=== PATIENT | male | born 1940 | race Caucasian/White ===

== ENCOUNTER 2016-08-26 11:31 | Emergency (ER) | payer MEDICARE, BC ==
[2016-08-26 11:47] VITALS: BP 109/53
--- OUTSIDE RECORDS SUMMARY | 2016-08-26 12:00 | XMS REPORT | Continuity of Care Document ---
:1940 Author Organization [facility] ([facility]) Address [address] [place] [address] Phone [phone] Care Team Providers Name Role Phone Barron Francis Primary Care Provider [phone] Source Comments This disclosure is being made pursuant to the Care Everywhere program, applicable federal and state laws, and may not contain all informaitonavailable regarding this patient.[facility] ([facility]) Active Allergies and Adverse Reactions Allergen Noted Date Severity Reactions Comments Codeine Stomach Pain Current Medications Prescription Sig. Disp. Refills Start End Status Date Date multivitamin per Take 1 tablet by Active tablet mouth daily ciprofloxacin 750 Take 750 mg by Active mg tablet mouth every week On Tuesday morning. riFAXimin (XIFAXAN) Take 1 Tab by mouth 60 Tab 10/14/19 Active 550 mg tablet 2 times daily. 13 Indications: HEPATIC ENCEPHALOPATHY lactulose 10 g/15 Take 15 mL by mouth 1000 mL 10/14/19 Active mL solution 2 times daily. 13 Indications: HEPATIC ENCEPHALOPATHY cyanocobalamin Inject 1,000 mcg Active (VITAMIN B-12) 1000 intramuscularly mcg/mL injection every month finasteride 5 mg Take 5 mg by mouth Active tablet every evening . levothyroxine Take 75 mcg by 03/20/20 Active (SYNTHROID) 75 mcg mouth every morning 13 tablet before breakfast . lovaSTATIN 40 mg take 2 tablet 04/20/20 Active tablet (80MG) by oral 11 route every day with the evening meal mupirocin 2 % Apply 1 application Active ointment topically 2 times daily as needed folic acid 1 mg Take 1 tablet (1 mg 30 tablet 0 04/19/20 Active tablet total) by mouth 15 daily melatonin 3 mg Take 1 tablet (3 mg 30 tablet 0 04/19/20 Active tablet total) by mouth at 15 bedtime midodrine 5 mg Take 1 tablet (5 mg 90 tablet 11 05/01/20 Active tablet total) by mouth 2 15 times daily cholecalciferol Take 2,000 Units by Active (VITAMIN D3) 2,000 mouth daily. unit tablet traZODone 50 mg 50mg in the morning Active tablet and 100mg at bedtime SERTraline 100 mg Take 50 mg by mouth Active tablet daily. 1/2 tablet mornign aspirin 81 mg EC Take 81 mg by mouth Active tablet daily. furosemide 40 mg Take 40 mg by mouth Active tablet daily. tamsulosin 0.4 mg Take 0.4 mg by Active capsule mouth daily. thiamine 100 mg Take 100 mg by Active tablet mouth daily. zinc sulfate 220 mg Take 440 mg by Active capsule mouth 3 times daily. sodium bicarbonate Take 650 mg by Active 650 mg tablet mouth 3 times daily. vitamin E 400 unit Take 800 Units by Active capsule mouth daily. OLANZapine 2.5 mg Take 2 tablets (5 10 tablet 0 08/26/19 Active tablet mg total) by mouth 17 at bedtime. oxybutynin Take 5 mg by mouth Discontinued (DITROPAN) 5 mg 3 times daily 017 tablet thiamine (VITAMIN Take 2 tablets (100 30 tablet 0 04/19/20 Discontinued B-1) 50 mg tablet mg total) by mouth 15 017 daily zinc sulfate 220 mg Take 1 capsule (220 60 capsule 06/20/19 Discontinued capsule mg total) by mouth 16 017 2 times daily. OLANZapine 2.5 mg Take 5 mg by mouth Discontinued tablet at bedtime. 017 LORazepam 0.5 mg Take 0.5 mg by Discontinued tablet mouth every 4 hours 017 as needed. calcium acetate 667 Take 1 capsule (667 90 capsule 03/21/20 Discontinued mg capsule mg total) by mouth 16 017 3 times daily with meals. OLANZapine 10 mg Take 5 mg by mouth Discontinued tablet at bedtime. 017 gabapentin 300 mg Take 300 mg by Discontinued capsule mouth 3 times 017 daily. Active Problems Problem Noted Date Intestinal obstruction 08/17/2015 Hyperkalemia 08/17/2015 Metabolic acidosis, increased anion gap 08/17/2015 Hyponatremia 08/17/2015 Edema 04/20/2015 Cognitive disorder 04/19/2015 ILDA (acute kidney injury) 04/19/2015 Vitamin D deficiency 04/14/2015 Marijuana dependence 04/11/2015 Opiate dependence 04/11/2015 History of depression 04/11/2015 PTSD (post-traumatic stress disorder) 04/11/2015 Anxiety disorder 04/11/2015 Encephalopathy, metabolic 03/31/2015 CKD (chronic kidney disease) stage 4, GFR 15-29 ml/min 03/12/2015 Solitary kidney, congenital 03/12/2015 Anemia in chronic 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.21) 03/12/2015 Ascites 05/05/2012 Cirrhosis 05/04/2012 Pain in joint, ankle and foot 05/18/2007 Bunion 05/18/2007 Resolved Problems Problem Noted Date Resolved Date Altered mental status 03/29/2015 04/19/2015 Most Recent Encounters Date Type Specialty Providers Description 08/26/2016 Telephone Med GI/Hepatology Cecy Mchugh Chief Comp: Lab Results 08/26/2016 Orders/Notes Med GI/Hepatology Casimiro Whipple PA-C 08/25/2016 Office Visit Med GI/Hepatology Griffin Parada Dx: Gomez Harrison MD (Primary Dx) William Blackwell MD Brown, Kyle E, MD Richardson, Michael T, JAYDEC 08/25/2016 Pharmacy Visit 08/18/2016 Office Visit Med GI/Hepatology Griffin Parada Dx: Cirrhosis of MD Hunter liver with ascites, William Blackwell, unspecified hepatic MD cirrhosis type Jasiel Velasquez MD (Primary Dx) Casimiro Whipple, JAYDEC 08/18/2016 Office Visit Med GI/Hepatology Default, Other Subj: Upcoming Appt Billg - Defo Reminder Jasiel Velasquez MD 08/18/2016 Telephone Med GI/Hepatology Awilda Bridges, Chief Comp: Medical Richelle Galeano RN Update 08/16/2016 Telephone Med GI/Hepatology Unique Rolon Chief Comp: Patient L Concern 08/11/2016 Office Visit Med GI/Hepatology Default, Other Subj: Upcoming Appt Billg - Defo Reminder Donato Crane MD 08/11/2016 Office Visit Med GI/Hepatology [facility] Parada Dx: Gomez Harrison MD (Primary Dx) William Blackwell MD Richardson, Michael T, PA-C 08/11/2016 Orders/Notes Med GI/Hepatology Ruben Monae Dx: Cirrhosis MD [place] (Primary Dx) 08/05/2016 Office Visit Pathology Aparna Villanueva MD Dx: Chronic kidney Lab Services, Pfp disease, stage IV (severe) 08/05/2016 Office Visit Renal and Default, Other Dx: CKD (chronic Hypertension Billg - Defo kidney disease), Aparna Villanueva MD stage 4 (severe) Yolis Rolle (Primary Dx) MD Jeferson 08/04/2016 Office Visit Med GI/Hepatology Default, Other Subj: Upcoming Appt Billg - Defo Reminder Casimiro Muse MD 08/04/2016 Office Visit Med GI/Hepatology Griffin Parada Dx: Other cirrhosis MD Hunter of liver (Primary Casimiro Muse, Dx) Casimiro Villanueva, JAYDEC 07/30/2016 Hospital Encounter Radiology [facility] [place], Dx: Cirrhosis Adriana Camarena MD 07/30/2016 Office Visit Med GI/Hepatology Ruben Monae Dx: Cirrhosis MD [place] (Primary Dx) 07/28/2016 Office Visit Med GI/Hepatology Griffin Parada Dx: Ascites MD Hunter (Primary Dx) Casimiro Whipple, JAYDEC 07/23/2016 Telephone Med GI/Hepatology Ruben Monae Dx: Renal failure, MD [place] chronic, stage 4 (severe) (Primary Dx) 07/21/2016 Office Visit Med GI/Hepatology Default, Other Dx: Ascites Billg - Defo (Primary Dx) Jasiel Velasquez MD Richardson, Michael T, JAYDEC 07/14/2016 Office Visit Med GI/Hepatology Default, Other Dx: Ascites Billg - Defo (Primary Dx) Derrell Aguilera MD Richardson, Michael T, JAYDEC 07/07/2016 Office Visit Med GI/Hepatology Derrell Aguilera Dx: ELVIN Cunningham MD (nonalcoholic Sarabjit, steatohepatitis) JAYDE RamírezC (Primary Dx) 06/30/2016 Office Visit Med GI/Hepatology Derrell Aguilera Dx: Gomez Cunningham MD (Primary Dx) Casimiro Whipple, PA-C 06/23/2016 Office Visit Med GI/Hepatology Default, Other Dx: Ascites Billg - Defo (Primary Dx) Byron Patino MD Richardson, Michael T, PA-C 06/23/2016 Orders/Notes Med GI/Hepatology Ruben Monae Dx: Gomez Galeano MD (Primary Dx) 06/16/2016 Office Visit Med GI/Hepatology Default, Other Dx: Ascites Billg - Defo (Primary Dx) Byron Patino MD Richardson, Michael T, PA-C 06/09/2016 Office Visit Med GI/Hepatology Default, Other Dx: OCONNOR Billg - Defo (nonalcoholic SequeiraDavey MD steatohepatitis) Sarabjit, (Primary Dx) Casimiro Hoskins PA-C 06/02/2016 Office Visit Med GI/Hepatology Default, Other Dx: Ascites Billg - Defo (Primary Dx) Dayday Sung MD Richardson, Michael T, PA-C 06/02/2016 Orders/Notes Med GI/Hepatology Ruben Monae Dx: ELVIN Galeano MD (nonalcoholic steatohepatitis) (Primary Dx) Immunizations Name Dates Previously Given Next Due Influenza 03/05/2015 Influenza, PF 03/22/2014 Tdap 01/25/2016,11/13/2013 Social History Tobacco Use Types Packs/Day Years Used Date Never Smoker 0.05 0 Smokeless Tobacco: Current User Chew Tobacco Cessation:Counseling Given: Yes Comments: Alcohol Use Drinks/Week oz/Week Comments No Last Filed Vital Signs Vital Sign Reading Time Taken Blood Pressure 113/68 08/25/2016 12:35 PM CDT Pulse 79 08/25/2016 12:35 PM CDT Temperature 36.3 C (97.3 F) 08/25/2016 12:35 PM CDT Respiratory Rate 20 05/26/2016 12:32 PM EPIC CUPID ANALYST Height 1.803 m (5' 10.98") 08/25/2016 12:35 PM CDT Weight 80 kg (176 lb 5.9 oz) 08/25/2016 12:35 PM CDT Body Mass Index 24.61 08/25/2016 12:35 PM CDT Oxygen Saturation 98% 03/03/2016 10:26 AM CDT Plan of Care Date Type Specialty Providers Description 01/28/2017 Appointment Radiology Subj: Appointment Scheduled 01/28/2017 Appointment Med GI/Hepatology Ruben Monae, Subj: Appointment Scheduled [address] [place] [address] [phone] (Fax) 01/28/2017 Appointment Renal and Hypertension Default, Other Billg - Defo [address] [place] [address] [phone] (Fax) Subj: Appointment Yolis Rolle MD [address] [place] [address] [phone] (Fax) Scheduled Health Maintenance Due Date Last Done Comments Hepatitis B Vaccine (1 of 3 - Primary 1940 Series) Colonoscopy 1990 Prostate Cancer Screening 1990 Zoster Vaccine 2000 Pneumococcal Vaccine (1 of 2 - PCV13) 2005 Influenza Vaccine: Seasonal (#1) 12/29/2015 03/05/2015, 03/22/2014 Lipid Disorder Screening 08/02/2018 08/02/2013 Td Vaccine 01/24/2026 01/25/2016, 11/13/2013 AAA Screening Completed 08/17/2015, 04/21/2015 Tdap Vaccine Completed 01/25/2016, 11/13/2013 Procedures from Last 3 Months Procedure Name Priority Date/Time Associated Diagnosis Comments ABSTRACTED BY Routine 08/25/2016 1:54 OCONNOR (nonalcoholic Results for this BILLING STAFF PM CDT steatohepatitis) procedure are in Ascites the results Cirrhosis section. ABSTRACTED BY Routine 08/18/2016 6:08 Cirrhosis of liver Results for this BILLING STAFF PM CDT with ascites, procedure are in unspecified hepatic the results cirrhosis type section. ABSTRACTED BY Routine 08/11/2016 1:28 OCONNOR (nonalcoholic Results for this BILLING STAFF PM CDT steatohepatitis) procedure are in Ascites the results section. ABSTRACTED BY Routine 08/04/2016 1:47 Other cirrhosis of Results for this BILLING STAFF PM EPIC CUPID ANALYST liver procedure are in OCONNOR (nonalcoholic the results steatohepatitis) section. Ascites ABSTRACTED BY Routine 07/28/2016 2:13 Ascites Results for this BILLING STAFF PM EPIC CUPID ANALYST OCONNOR (nonalcoholic procedure are in steatohepatitis) the results section. ABSTRACTED BY Routine 07/21/2016 2:46 OCONNOR (nonalcoholic Results for this BILLING STAFF PM EPIC CUPID ANALYST steatohepatitis) procedure are in Ascites the results section. ABSTRACTED BY Routine 07/14/2016 2:04 OCONNOR (nonalcoholic Results for this BILLING STAFF PM EPIC CUPID ANALYST steatohepatitis) procedure are in Ascites the results section. ABSTRACTED BY Routine 07/07/2016 1:20 OCONNOR (nonalcoholic Results for this BILLING STAFF PM EPIC CUPID ANALYST steatohepatitis) procedure are in Ascites the results section. ABSTRACTED BY Routine 06/30/2016 2:49 OCONNOR (nonalcoholic Results for this BILLING STAFF PM EPIC CUPID ANALYST steatohepatitis) procedure are in Ascites the results Portal hypertension section. CKD (chronic kidney disease) stage 4, GFR 15-29 ml/min Other ascites ABSTRACTED BY Routine 06/23/2016 1:50 OCONNOR (nonalcoholic Results for this BILLING STAFF PM EPIC CUPID ANALYST steatohepatitis) procedure are in Ascites the results Portal hypertension section. CKD (chronic kidney disease) stage 4, GFR 15-29 ml/min Other ascites ABSTRACTED BY Routine 06/16/2016 1:44 OCONNOR (nonalcoholic Results for this BILLING STAFF PM EPIC CUPID ANALYST steatohepatitis) procedure are in Ascites the results Portal hypertension section. ABSTRACTED BY Routine 06/09/2016 2:01 OCONNOR (nonalcoholic Results for this BILLING STAFF PM EPIC CUPID ANALYST steatohepatitis) procedure are in Ascites the results Portal hypertension section. ABSTRACTED BY Routine 06/02/2016 2:31 OCONNOR (nonalcoholic Results for this BILLING STAFF PM EPIC CUPID ANALYST steatohepatitis) procedure are in Ascites the results Portal hypertension section. Decompensated hepatic cirrhosis Results from Last 3 Months DRUGS OF ABUSE - URINE (08/25/2016 3:22 PM) Component Value Range Amphetamines, Urine NegativeComment: Negative Test cut-off: 1000 ng/mL for d-methamphetamine. Benzodiazepine, Urine NegativeComment: Negative Test cut-off:100 ng/mL Cocaine, Urine NegativeComment: Negative Test cut-off:300 ng/mL Opiate, Urine NegativeComment: Negative Test cut-off:300 ng/mL for morphine Oxycodone, Urine NegativeComment: Negative Test cut-off:300 ng/mL Amphetamines assay cross-reacts well with amphetamine and methamphetamine, as well as the "lead level designer" amphetamines MDMA ("Ecstasy"), MDA, MDEA ("Brooke"), MBDB , PMA, and PMMA. Labetalol may also produce f alse positives due to cross-reactivity of a metabolite. The amphetamines assay has little or no cross-reactivity with ephedrine, pseudoephedrine, phentermine, and methylphenidate. Opiates assay has lo w cross-reactivity for buprenorphine, fentanyl, meperidine, methadone, oxycodone, and propoxyphene (all have cut-offs greater than 75,000 ng/mL). Please see Laboratory Services Handbook ([email or web address]_ handbook.index.html) for more detailed information on assay cross-reactivity. Drug of abuse screening tests are to be used for medical purposes only and not for non-medical purposes (e.g., employee, sourcing coordinator, or forensic testing). Specimen Urine THC-URINE SCREEN (08/25/2016 3:22 PM) Component Value Range THC, Urine Presumptive Positive(A)Comment: Negative Test-cut off:50 ng/mL Drug of abuse screening tests are to be used for medical purposes only and not for non-medical purposes (e.g., employee or forensic testing). Specimen Urine BODY FLUID CELL COUNT AND DIFF (08/25/2016 2:00 PM)Only the most recent of13 resultswithin the time period is included. Component Value Range Body Fluid Type Peritoneal fluid Clarity, Other Slightly Hazy(A) Clear Color, Other Yellow None, Yellow, Pale Yellow Total Nucleated Count, Other 139 /MM3 RBC Count, Other 3000 /MM3 Neutrophils, Other 3 /MM3 Lymphocytes, Other 42 /MM3 Mononucleated Cells, Other 95 /MM3 % Neutrophils, Other 2.0 % % Lymphocytes, Other 30.0 % %BF Mononucleated Cells 68.0 % Specimen Other ALBUMIN-OTHER (08/25/2016 2:00 PM)Only the most recent of13 resultswithin the time period is included. Component Value Range Albumin Fluid Type Peritoneal fluid Albumin, Other 0.7Comment: g/dL This test is not approved by the FDA for this sample type. Performance characteristics and reference range have not been verified. Results should be interpreted in conjunction with clinical findings. Specimen Other TOTAL PROTEIN-OTHER (08/25/2016 2:00 PM)Only the most recent of13 resultswithin the time period is included. Component Value Range Total Protein Fluid Type Peritoneal fluid Total Protein, Other 1.5Comment: g/dL This test is not approved by the FDA for this sample type. Performance characteristics and reference range have not been verified. Results should be interpreted in conjunction with clinical findings. A published study using [employer] viola 8000 analyzers has demonstrated that analysis of total protein in cerebrospinal fluid, pericardial fluid, peritoneal/ascites fluid, pleural fluid, an d synovial fluid shows no evidence of systematic matrix interference (Clin Biochem 48:911-914, 2015). Specimen Other AMMONIA, PLASMA (08/25/2016 1:55 PM)Only the most recent of3 resultswithin the time period is included. Component Value Range Plasma Ammonia 46 11-51 mol/L Specimen Blood PARACENTESIS (08/25/2016 1:54 PM) Casimiro Elmore PA-C 08/25/20161:54 PM PARACENTESIS Supervision type: Indirect Paracentesis, Diagnostic or Therapeutic Procedure Note 08/25/2016 Indication for Procedure: Ascites secondary to OCONNOR cirrhosis Consent: obtained from patient. Time Out: yes Ultrasound: was not used Description of Procedure: The patient was positioned supine, prepped with betadine and draped sterilely.After ensuring adequate anesthesia a Delarosa needle was inserted into the abdomen in in the left lower quadrant and orange colored fluid was obtained.Total fluid removed was 6.5 liters.The device was withdrawn and a sterile dressing applied. 50 grams of IV Albumin was given. Fluid samples were sent for analyses Procedural Medications:1% lidocaine, 3 cc Complications: None noted Casimiro Whipple, MS, MPASBALDO Physician Bulk Plant Agent, Division Gastroenterology & Hepatology [facility] Department of Internal Medicine Pager: [phone] BASIC METABOLIC PANEL W/ CALCIUM (CHEM 8) (08/25/2016 12:43 PM)Only the most recent of13 resultswithin the time period is included. Component Value Range Sodium 135 135-145 mEq/L Potassium 4.3 3.5-5.0 mEq/L Chloride 97 95-107 mEq/L CO2 23 22-29 mEq/L BUN 70(H) 10-20 mg/dL Creatinine 2.9(H)Comment: 0.6-1.2 mg/dL Creatinine switched to enzymatic method on 10/06/2010.GFR equation switched to IDMS-traceable MDRD equation on 10/06/2010. Calculated GFR values are not valid in clinical settings where serum creatinine is changing. Glucose 182(H)Comment: 65-99 mg/dL The Expert Committee on the Diagnosis and Classification of Diabetes has defined impaired fasting glucose as greater than or equal to 100 mg/dL but less than 126 mg/dL.(Diabetes Care 28 (Suppl 1)S41,2005) Calcium 8.1(L) 8.5-10.5 mg/dL Anion Gap 15 mEq/L Calculated GFR 21(L) >60 mL/min/1.73 m2 Specimen Blood PT/INR (PROTHROMBIN TIME/INR) VENOUS (08/25/2016 12:43 PM)Only the most recent of11 resultswithin the time period is included. Component Value Range PT (Prothrombin Time) 12 9-12 secs INR 1.1 <4.0 Specimen Blood CBC (COMPLETE BLOOD COUNT) (08/25/2016 12:43 PM)Only the most recent of12 resultswithin the time period is included. Component Value Range WBC Count 5.4 3.7-10.5 K/MM3 RBC Count 3.02(L) 4.50-6.20 M/MM3 Hemoglobin 8.8(L) 13.2-17.7 g/dL Hematocrit 27(L) 40-52 % MCV (Mean Corpuscular Volume) 88 82-99 FL MCH (Mean Corpuscular Hemoglobin) 29 25-35 PG MCHC (Mean Corpuscular Hemoglobin Concentration) 33 32-36 % Platelet Count 86(L) 150-400 K/MM3 MPV (Mean Platelet Volume) 11.8 9.4-12.3 FL RBC Dist Width-STD 46.0(H) 35.1-43.9 FL RBC Distrib Width 14.3 9.0-14.5 % Nucleated RBC 0 /100 WBC Specimen Whole Blood PARACENTESIS (08/18/2016 6:08 PM) Casimiro Elmore PA-C 08/18/20166:08 PM PARACENTESIS Supervision type: Indirect Paracentesis, Diagnostic or Therapeutic Procedure Note 08/18/2016 Indication for the Procedure: Ascites secondary to OCONNOR cirrhosis Consent: obtained from patient. Time Out: yes Ultrasound: was not used Description of Procedure: The patient was positioned supine, prepped with betadine and draped sterilely.After ensuring adequate anesthesia a Delarosa needle was inserted into the abdomen in in the left lower quadrant and blood-tinged fluid was obtained.Total fluid removed was 7 liters.The device was withdrawn and a sterile dressing applied. 50 grams of IV Albumin was given. Fluid samples were sent for analyses Procedural Medications:1% lidocaine, 3 cc Complications: None noted Casimiro Whipple MS, BALDO THAYER Physician Bulk Plant Agent, Division Gastroenterology & Hepatology [facility] Department of Internal Medicine Pager: [phone] STERILE BODY FLUIDS CULTURE-AUTOMATED (08/18/2016 1:48 PM)Only the most recent of12 resultswithin the time period is included. Component Value Range Blood Culture No Growth Specimen Culture - Peritoneal Fluid PARACENTESIS OF ABDOMEN (08/11/2016 1:28 PM) Casimiro Elmore PA-C 08/11/20161:28 PM Paracentesis of abdomen Supervision type: Indirect Paracentesis, Diagnostic or Therapeutic Procedure Note 08/11/2016 Indication for Procedure: Ascites secondary to OCONNOR cirrhosis Consent: obtained from patient. Time Out: yes Ultrasound: was not used Description of Procedure: The patient was positioned supine, prepped with betadine and draped sterilely.After ensuring adequate anesthesia a Delarosa needle was inserted into the abdomen in in the left lower quadrant and straw-colored, slightly hazy fluid was obtained.Total fluid removed was 7.5 liters. The device was withdrawn and a sterile dressing applied. 50 grams of IV Albumin was given. Fluid samples were sent for analyses Procedural Medications:1% lidocaine, 3 cc Complications: None noted Casimiro Whipple MS, BALDO THAYER Physician Bulk Plant Agent, Division Gastroenterology & Hepatology [facility] Department of Internal Medicine Pager: [phone] VITAMIN D, 25-HYDROXY (08/05/2016 1:34 PM) Component Value Range Vitamin D, 25-OH 8(L)Comment: 20-80 ng/mL This assay accurately quantifies the sum of 25-hydroxyvitamin D3 and 25- hydroxyvitamin D2. Endocrine Society, [place] of Medicine (IOM), and World Health Organization (WHO) guidelines designate 25-h ydroxyvitamin D plasma concentrations below 20 ng/mL as deficient, based on increased frequency of adverse outcomes (e.g., osteoporotic fractures). 25-Hydroxyvitamin D reference ranges are a controversial topic, with some authorities suggesting optimal concentrations should be 30 ng/mL or higher based on correlations of 25-hydroxyvitamin D plasma concentrations with physiological parameters such as parathyroid hormone or calcium concentrations. However, optimal 25-hydroxyvitamin D concentrations greater than 20 ng/mL may be considered for specific disease conditions. Vitamin D toxicity is uncommon but may be seen at 25-hydroxyvitamin D concentrations greater than 150 ng/mL. Specimen Blood FERRITIN (08/05/2016 1:34 PM) Component Value Range Ferritin 68.6 30.0-400.0 ng/mL Specimen Blood IRON PANEL (IRON, TRANSFERRIN AND % SATURATION) (08/05/2016 1:34 PM) Component Value Range Iron, Blood 41(L) 59-158 g/dL Transferrin 192(L) 200-360 mg/dL Iron % Saturation 15(L)Comment: 20-50 % Iron % saturation is a calculated parameter derived from the iron and transferrin plasma concentrations. Iron % saturation is not reliable when there are high ferritin concentrations greater than 1,200 ng/mL. TIBC (Total Iron Binding Capacity) 275Comment: 250-425 g/dL TIBC is a calculated parameter derived from the transferrin plasma concentration. Specimen Blood HEMATOCRIT (08/05/2016 1:34 PM) Component Value Range Hematocrit 30(L) 40-52 % Specimen Blood HEMOGLOBIN (08/05/2016 1:34 PM) Component Value Range Hemoglobin 9.8(L) 13.2-17.7 g/dL Specimen Blood PARATHYROID HORMONE (08/05/2016 1:34 PM)Only the most recent of2 resultswithin the time period is included. Component Value Range PTH 143.4(H) 10.0-65.0 pg/mL Specimen Blood PHOSPHORUS (08/05/2016 1:34 PM) Component Value Range Phosphorus 4.0Comment:New reference range installed 03/11/15. 2.5-4.5 mg/dL Specimen Blood CALCIUM (08/05/2016 1:34 PM) Component Value Range Calcium 8.2(L) 8.5-10.5 mg/dL Specimen Blood ALBUMIN (08/05/2016 1:34 PM) Component Value Range Albumin 3.8 3.4-4.8 g/dL Specimen Blood CHEM 6 PANEL (08/05/2016 1:34 PM) Component Value Range Sodium 135 135-145 mEq/L Chloride 97 95-107 mEq/L Potassium 4.8 3.5-5.0 mEq/L CO2 24 22-29 mEq/L BUN 61(H) 10-20 mg/dL Creatinine 3.2(H)Comment: 0.6-1.2 mg/dL Creatinine switched to enzymatic method on 10/06/2010.GFR equation switched to IDMS-traceable MDRD equation on 10/06/2010. Calculated GFR values are not valid in clinical settings where serum creatinine is changing. Anion Gap 14 8-18 mEq/L Calculated GFR 19(L) >60 mL/min/1.73 m2 Specimen Blood PARACENTESIS (08/04/2016 1:47 PM) Casimiro Elmore PA-C 08/04/20161:47 PM PARACENTESIS Supervision type: Indirect Paracentesis, Diagnostic or Therapeutic Procedure Note 08/04/2016 Indication for Procedure: Ascites secondary to OCONNOR cirrhosis Consent: obtained from patient. Time Out: yes Ultrasound: was not used Description of Procedure: The patient was positioned supine, prepped with betadine and draped sterilely.After ensuring adequate anesthesia a Delarosa needle was inserted into the abdomen in in the left lower quadrant and hazy fluid was obtained.Total fluid removed was 8.1.The device was withdrawn and a sterile dressing applied. 50 grams of IV Albumin was given. Fluid samples were sent for analyses Procedural Medications:1% lidocaine, 3 cc Complications: None noted Casimiro Whipple, MS, MPASBALDO Physician Bulk Plant Agent, Division Gastroenterology & Hepatology [facility] Department of Internal Medicine Pager: [phone] RIGHT UPPER QUADRANT (RUQ) (07/30/2016 3:13 PM) Impressions Impression: 1. Cirrhotic liver without suspicious focal liver lesions. 2. There are changes of portal hypertension including splenomegaly and ascites. 3. Incidental liver granulomas & a cyst. --- Final --- Narrative [facility] Department of Radiology Ultrasound Division [address] [place] [address] ULTRASOUND REPORT NAME:JR. ADINA HADDAD Date of Service: 07/30/2016 MRN NO.: [id number] Date: 2016 Patient's : 1940 Resident/Tech: KARRIE Patient's Age: 75 yearsReferring MD:RUBEN MONAE Indication: Evaluate liver morphology, assess for lesion Cirrhosis [K74.60] Ascites [R18.8] OCONNOR (nonalcoholic steatohepatitis) [K75.81] Other cirrhosis of liver [K74.69] Portal vein thrombosis [I81] CKD (chronic kidney disease) stage 4, GFR 15-29 ml/min [N18.4] Cancer screening [Z12.9]. Technique: Liver, spleen, ascites surveillance grayscale ultrasound. Findings: Liver: Scattered calcifications throughout. +---------+ + +--------+ + :Size (cm):Echogenicity:Echotexture:Shape :Vascularity: +---------+ + +--------+ + :15.4 :Normal. :Coarse echotexture.:Nodular.:Normal.: +---------+ + +--------+ + +------+ + + + :Lesion:Location :Size (cm):Echogenicity: +------+ + + + :1 :Left upper.:.7 x .7 x .6 cm:Cyst. : +------+ + + + Biliary Tree: + + + :Extrahepatic duct (common duct):Diameter (mm): + + + :Mid:2.7 : + + + Spleen: Splenomegaly. Spleen measures 15.3 x 14.7 x 6.7 cm. Ascites: There is moderate ascites. Moderate ascites in the abdomen and pelvis. Procedure Note Spike, Incoming Imaging Results - TueJul 30, 2016 3:19 PM EPIC CUPID ANALYST [facility] Department of Radiology Ultrasound Division [address] [place] [address] ULTRASOUND REPORT NAME: JR. ADINA HADDAD Date of Service: 07/30/2016 MRN NO.: [id number] Review Date: 07/30/2016 Patient's : 1940 Resident/Tech: KARRIE Patient's Age: 75 years Referring MD: RUBEN MONAE Indication: Evaluate liver morphology, assess for lesion Cirrhosis [K74.60] Ascites [R18.8] OCONNOR (nonalcoholic steatohepatitis) [K75.81] Other cirrhosis of liver [K74.69] Portal vein thrombosis [I81] CKD (chronic kidney disease) stage 4, GFR 15-29 ml/min [N18.4] Cancer screening [Z12.9]. Technique: Liver, spleen, ascites surveillance grayscale ultrasound. Findings: Liver: Scattered calcifications throughout. +---------+ + +--------+ + :Size (cm):Echogenicity:Echotexture :Shape :Vascularity: +---------+ + +--------+ + :15.4 :Normal. :Coarse echotexture.:Nodular.:Normal. : +---------+ + +--------+ + +------+ + + + :Lesion:Location :Size (cm) :Echogenicity: +------+ + + + : 1 :Left upper.:.7 x .7 x .6 cm:Cyst. : +------+ + + + Biliary Tree: + + + :Extrahepatic duct (common duct):Diameter (mm): + + + :Mid :2.7 : + + + Spleen: Splenomegaly. Spleen measures 15.3 x 14.7 x 6.7 cm. Ascites: There is moderate ascites. Moderate ascites in the abdomen and pelvis. IMPRESSION Impression: 1. Cirrhotic liver without suspicious focal liver lesions. 2. There are changes of portal hypertension including splenomegaly and ascites. 3. Incidental liver granulomas & a cyst. --- Final --- PARACENTESIS (07/28/2016 2:13 PM) Casimiro Elmore PA-C 07/28/20162:13 PM PARACENTESIS Supervision type: Indirect Paracentesis, Diagnostic or Therapeutic Procedure Note 07/28/2016 Indication for Procedure: Ascites secondary to OCONNOR cirrhosis Consent: obtained from patient. Time Out: yes Ultrasound: was not used Description of Procedure: The patient was positioned supine, prepped with betadine and draped sterilely.After ensuring adequate anesthesia a Delarosa needle was inserted into the abdomen in in the left lower quadrant and straw-colored, moderately hazy fluid was obtained.Total fluid removed was 7.9 liters.The device was withdrawn and a sterile dressing applied. 50 grams of IV Albumin was given. Fluid samples were sent for analyses Procedural Medications:1% lidocaine, 5 cc Complications: None noted Casimiro Whipple, MS, MPASBALDO Physician Bulk Plant Agent, Division Gastroenterology & Hepatology [facility] Department of Internal Medicine Pager: [phone] GAMMA GLUTAMYLTRANSPEPTIDASE (07/28/2016 12:58 PM)Only the most recent of2 resultswithin the time period is included. Component Value Range GGT 44 8-61 U/L Specimen Blood LACTATE DEHYDROGENASE (LDH) (07/28/2016 12:58 PM)Only the most recent of2 resultswithin the time period is included. Component Value Range LDH 206 135-225 U/L Specimen Blood ALPHA-FETOPROTEIN (07/28/2016 12:58 PM)Only the most recent of2 resultswithin the time period is included. Component Value Range AFP 1.7 0.0-9.0 ng/mL Specimen Blood HEPATIC FUNCTION PANEL (07/28/2016 12:58 PM)Only the most recent of2 resultswithin the time period is included. Component Value Range Albumin 3.3(L) 3.4-4.8 g/dL ALP 76 40-129 U/L Bilirubin Total 0.4 <=1.2 mg/dL Bilirubin, Direct <0.2 0.0-0.2 mg/dL AST 23Comment: 0-40 U/L Adult reference ranges updated on 04/24/13 at 830am ALT 14Comment: 0-41 U/L The upper limit of normal for alanine aminotransferase (ALT) reference ranges for adults is controversial with some authorities recommending limit as low as 30 U/L for males and 19 U/L for females. Th ere is increased incidence of subclinical liver disease (e.g., early steatohepatitis) in patients with ALT values in the range of 31-41 U/L for males and 20-33 U/L for females. ALT values should alway s be interpreted in conjunction with clinical history, physical examination findings, and, if applicable, data from other diagnostic tests. Total Protein 6.1 6.0-8.0 g/dL Specimen Blood PARACENTESIS OF ABDOMEN (07/21/2016 2:46 PM) Casimiro Elmore PA-C 07/21/20162:46 PM Paracentesis of abdomen Supervision type: Indirect Paracentesis, Diagnostic or Therapeutic Procedure Note 07/21/2016 Consent: obtained from patient. Time Out: yes Ultrasound: was not used Description of Procedure: The patient was positioned supine, prepped with betadine and draped sterilely.After ensuring adequate anesthesia a Delarosa needle was inserted into the abdomen in in the left lower quadrant and hazy, straw-colored fluid was obtained.Total fluid removed was 8.5 liters.The device was withdrawn and a sterile dressing applied. 75 grams of IV Albumin was given. Fluid samples were sent for analyses Procedural Medications:1% lidocaine, 4 cc Complications: None noted Casimiro Whipple, MS, MPAS, BALDO Physician Bulk Plant Agent, Division Gastroenterology & Hepatology [facility] Department of Internal Medicine Pager: [phone] DIFFERENTIAL (07/21/2016 12:54 PM) Component Value Range % Neutrophils-Auto Diff 78.1 % Neutrophils-Auto Diff 3670 2193-0190 /MM3 % Lymphocytes-Auto Diff 4.5 % Lymphocytes-Auto Diff 210(L) 875-3300 /MM3 % Monocytes-Auto Diff 10.6 % Monocytes-Auto Diff 500 130-860 /MM3 % Eosinophils-Auto Diff 6.0 % Eosinophils-Auto Diff 280 40-390 /MM3 % Basophils 0.4 % Basophils-Auto Diff 20 10-136 /MM3 % Immature Granulocytes-Auto Diff 0.4 % Immature Granulocytes-Auto Diff 20 /MM3 Specimen Whole Blood CBC (COMPLETE BLOOD COUNT) (07/21/2016 12:54 PM) Component Value Range WBC Count 4.7 3.7-10.5 K/MM3 RBC Count 3.15(L) 4.50-6.20 M/MM3 Hemoglobin 9.6(L) 13.2-17.7 g/dL Hematocrit 28(L) 40-52 % MCV (Mean Corpuscular Volume) 90 82-99 FL MCH (Mean Corpuscular Hemoglobin) 31 25-35 PG MCHC (Mean Corpuscular Hemoglobin Concentration) 34 32-36 % Platelet Count 82(L) 150-400 K/MM3 MPV (Mean Platelet Volume) 10.9 9.4-12.3 FL RBC Dist Width-STD 51.0(H) 35.1-43.9 FL RBC Distrib Width 15.5(H) 9.0-14.5 % Nucleated RBC 0 /100 WBC Specimen Whole Blood CBC WITH DIFFERENTIAL (07/21/2016 12:54 PM) Specimen Whole Blood Narrative The following orders were created for panel order CBC WITH DIFFERENTIAL. Procedure Abnormality Status --------- ------ CBC (COMPLETE BLOOD COUNT)[[id number]] AbnormalFinal result DIFFERENTIAL[[id number]] AbnormalFinal result Please view results for these tests on the individual orders. PARACENTESIS (07/14/2016 2:04 PM) Narrative Casimiro Whipple PA-C 07/14/20162:04 PM PARACENTESIS Supervision type: Indirect Paracentesis, Diagnostic or Therapeutic Procedure Note 07/14/2016 Consent: obtained from patient. Time Out: yes Ultrasound: was not used Description of Procedure: The patient was positioned supine, prepped with betadine and draped sterilely.After ensuring adequate anesthesia a Delarosa needle was inserted into the abdomen in in the left lower quadrant and straw-colored fluid was obtained.Total fluid removed was 7.5 liters.The device was withdrawn and a sterile dressing applied. 50 grams of IV Albumin was given. Fluid samples were sent for analyses Procedural Medications:1% lidocaine, 4 cc Complications: None noted Casimiro Whipple MS, MPAS, PA-C Physician Bulk Plant Agent, Division Gastroenterology & Hepatology [facility] Department of Internal Medicine Pager: [phone] PARACENTESIS OF ABDOMEN (07/07/2016 1:20 PM) Casimiro Elmore PA-C 07/07/20161:20 PM Paracentesis of abdomen Supervision type: Indirect Paracentesis, Diagnostic or Therapeutic Procedure Note 07/07/2016 Indication for Procedure: Ascites secondary to OCONNOR cirrhosis Consent: obtained from patient. Time Out: yes Ultrasound: was not used Description of Procedure: The patient was positioned supine, prepped with betadine and draped sterilely.After ensuring adequate anesthesia a Delarosa needle was inserted into the abdomen in in the left lower quadrant and straw-colored, slightly hazy fluid was obtained.Total fluid removed was 8.5 liters. The device was withdrawn and a sterile dressing applied. 50 grams of IV Albumin was given. Fluid samples were sent for analyses Procedural Medications:1% lidocaine, 3 cc Complications: None noted Casimiro Whipple MS, MPAS, PA-C Physician Bulk Plant Agent, Division Gastroenterology & Hepatology [facility] Department of Internal Medicine Pager: [phone] PARACENTESIS (06/30/2016 2:49 PM) Casimiro Elmore PA-C 06/30/20162:49 PM PARACENTESIS Supervision type: Indirect Paracentesis, Diagnostic or Therapeutic Procedure Note 06/30/2016 Indication for Procedure: Ascites secondary to OCONNOR cirrhosis Consent: obtained from patient. Time Out: yes Ultrasound: was not used Description of Procedure: The patient was positioned supine, prepped with betadine and draped sterilely.After ensuring adequate anesthesia a Delarosa needle was inserted into the abdomen in in the left lower quadrant and straw-colored fluid was obtained.Total fluid removed was 7.2 liters.The device was withdrawn and a sterile dressing applied. 50 grams of IV Albumin was given. Fluid samples were sent for analyses Procedural Medications:1% lidocaine, 3 cc Complications: None noted Casimiro Whipple MS, MPAS, PA-C Physician Bulk Plant Agent, Division Gastroenterology & Hepatology [facility] Department of Internal Medicine Pager: [phone] PARACENTESIS (06/23/2016 1:50 PM) Casimiro Elmore PA-C 06/23/20161:50 PM PARACENTESIS Supervision type: Indirect Paracentesis, Diagnostic or Therapeutic Procedure Note 06/23/2016 Indication for Procedure: Ascites secondary to OCONNOR cirrhosis Consent: obtained from patient. Time Out: yes Ultrasound: was not used Description of Procedure: The patient was positioned supine, prepped with betadine and draped sterilely.After ensuring adequate anesthesia a Delarosa needle was inserted into the abdomen in in the left lower quadrant and straw-colored fluid was obtained.Total fluid removed was 7.9 liters.The device was withdrawn and a sterile dressing applied. 75 grams of IV Albumin was given. Fluid samples were sent for analyses Procedural Medications:1% lidocaine, 3 cc Complications: None noted Casimiro Whipple MS, MPAS, PA-C Physician Bulk Plant Agent, Division Gastroenterology & Hepatology [facility] Department of Internal Medicine Pager: [phone] PARACENTESIS (06/16/2016 1:44 PM) Casimiro Elmore PA-C 06/16/20161:44 PM PARACENTESIS Supervision type: Indirect Paracentesis, Diagnostic or Therapeutic Procedure Note 06/16/2016 Indication for Procedure: Ascites secondary to OCONNOR cirrhosis Consent: obtained from patient. Time Out: yes Ultrasound: was not used Description of Procedure: The patient was positioned supine, prepped with betadine and draped sterilely.After ensuring adequate anesthesia a Delarosa needle was inserted into the abdomen in in the left lower quadrant and straw-colored fluid was obtained.Total fluid removed was 8.7 liters.The device was withdrawn and a sterile dressing applied. 75 grams of IV Albumin was given. Fluid samples were sent for analyses Procedural Medications:1% lidocaine, 3 cc Complications: None noted Casimiro Whipple MS, MPAS, PA-C Physician Bulk Plant Agent, Division Gastroenterology & Hepatology [facility] Department of Internal Medicine Pager: [phone] PARACENTESIS (06/09/2016 2:01 PM) Casimiro Elmore PA-C 06/09/20162:01 PM PARACENTESIS Supervision type: Indirect Paracentesis, Diagnostic or Therapeutic Procedure Note 06/09/2016 Indication for Procedure: Ascites secondary to OCONNOR Cirrhosis Consent: obtained from patient. Time Out: yes Ultrasound: was not used Description of Procedure: The patient was positioned supine, prepped with betadine and draped sterilely.After ensuring adequate anesthesia a Delarosa needle was inserted into the abdomen in in the left lower quadrant and straw-colored, slightly hazy fluid was obtained.Total fluid removed was 6.7 liters. The device was withdrawn and a sterile dressing applied. 50 grams of IV Albumin was given. Fluid samples were sent for analyses Procedural Medications:1% lidocaine, 3.5 cc Complications: None noted Casimiro Whipple MS, BALDO THAYER Physician Bulk Plant Agent, Division Gastroenterology & Hepatology [facility] Department of Internal Medicine Pager: [phone] TRIGLYCERIDES-OTHER (06/09/2016 1:51 PM) Component Value Range Triglycerides Fluid Type Peritoneal fluid Triglycerides, Other 45Comment: mg/dL This test is not approved by the FDA for this sample type. Performance characteristics and reference range have not been verified. Results should be interpreted in conjunction with clinical findings. A published study using [employer] viola 8000 analyzers has demonstrated that analysis of triglycerides in drain fluids, pericardial fluid, peritoneal/ascites fluid, and pleural fluid shows no evidence of systematic matrix interference (Clin Biochem 48:911-914, 2015) . Specimen Other PARACENTESIS (06/02/2016 2:31 PM) Casimiro Elmore PA-C 06/02/20162:31 PM PARACENTESIS Supervision type: Indirect Paracentesis, Diagnostic or Therapeutic Procedure Note 06/02/2016 Indication for Procedure: Ascites secondary to OCONNOR cirrhosis Consent: obtained from patient. Time Out: yes Ultrasound: was not used Description of Procedure: The patient was positioned supine, prepped with betadine and draped sterilely.After ensuring adequate anesthesia a Delarosa needle was inserted into the abdomen in in the left lower quadrant and straw-colored fluid was obtained.Total fluid removed was 6.7 liters.The device was withdrawn and a sterile dressing applied. 50 grams of IV Albumin was given. Fluid samples were sent for analyses Procedural Medications:1% lidocaine, 4 cc Complications: None noted Casimiro Whipple MS, MPAS, PA-C Physician Bulk Plant Agent, Division Gastroenterology & Hepatology [facility] Department of Internal Medicine Pager: [phone]
== END 2016-08-26 12:00 | disposition left against medical advice (07) ==
LOC: ER 11:31
DX: Z53.21 Procedure and treatment not carried out due to patient leaving prior to being seen by health care provider (principal)

== ENCOUNTER 2016-09-17 11:14 | Emergency (ER) | payer MEDICARE, BC ==
--- OUTSIDE RECORDS SUMMARY | 2016-09-17 11:49 | XMS REPORT | Continuity of Care Document ---
:1940 Author Organization [employer] [place] [address] Care Team Providers Name Role Phone Provider, None Per Patient Primary Care Provider Unavailable Source Comments This disclosure is being made pursuant to the [employer] program and maynot contain all information available regarding this patient.[employer] Active Allergies and Adverse Reactions No Known Allergies Current Medications Be aware that medications may not be up to date as of this document. Alwaysverify current medications with the patient. No known medications Active Problems Not on file Most Recent Encounters Date Type Specialty Providers Description 09/15/2016 Hospital Encounter Emergency Medicine Milan Ruiz, Other ascites MD (Primary Dx); Chronic renal insufficiency, stage 4 (severe) (HCC) 09/15/2016 Hospital Encounter Emergency Medicine Social History Tobacco Use Types Packs/Day Years Used Date Never Assessed Last Filed Vital Signs Vital Sign Reading Time Taken Blood Pressure 111/71 09/15/2016 8:25 PM CDT Pulse 76 09/15/2016 8:25 PM CDT Temperature 36.5 C (97.7 F) 09/15/2016 8:25 PM CDT Respiratory Rate 20 09/15/2016 8:25 PM CDT Height - - Weight 78.6 kg (173 lb 4.5 oz) 09/15/2016 8:25 PM CDT Body Mass Index - - Oxygen Saturation 95% 09/15/2016 8:25 PM CDT Plan of Care Health Maintenance Due Date Last Done Comments Tetanus/Pertussis (1 - Tdap) 12/25/1959 Colonoscopy 1990 Well Adult Visit 1990 Zoster Vaccine 60+ 2000 Pneumococcal Low/Medium Risk 65+ (1 of 2 - PCV13) 2005 Influenza Immunization (#1) 2016 Results from Last 3 Months Urinalysis with Reflex Testing (09/15/2016 9:51 PM) Component Value Range Specimen,UR CLN CATCH Color STRAW STRAW Clarity CLEAR CLEAR Glucose, Urinalysis NEG NEG mg/dL Bilirubin Urine NEG NEG Ketones, UA NEG NEG mg/dL Specific [place]berg 1.022 1.005-1.030 Blood NEG NEG pH 5.0 5.0-8.0 Protein NEG NEG mg/dL Urobilinogen 0.2 0.2-1.0 EU/dL Nitrite NEG NEG Leukocyte Esterase, UA NEG NEG Comment NONEComment:Test Performed at [facility], [address], [place], [place]. Specimen Cln Catch PROTIME-INR (09/15/2016 9:32 PM) Component Value Range Protime 11.6 9.3-11.7 sec INR 1.1Comment: 0.9-1.1 If patient is on warfarin, then suggested therapeutic range is: VENOUS THROMBOSIS=2.0-3.0 PULMONARY EMBOLISM=2.0-3.0 ATRIAL FIBRILLATION=2.0-3.0 MECHANICAL HEART VALVE,AORTIC=2.0-3.0 MECHANICAL HEART VALVE,MITRAL=2.5-3.5 BIOPROSTHETIC VALVE, MITRAL FOR 3 MONTHS POST OP=2.0-3.0 RECURRENT SYSTEMIC EMBOLISM=2.5-3.5 For more information, see [facility] Warfarin Prescribing Information. Test Performed at [facility], [address] [facility], [place], [place]. Comprehensive metabolic panel (09/15/2016 9:32 PM) Component Value Range Sodium 139 136-145 mmol/L Potassium 3.6 3.5-5.0 mmol/L Chloride 99 95-110 mmol/L CO2 31 21-32 mmol/L Glucose 173(H) 70-99 mg/dL BUN, Blood 72(H) 7-23 mg/dL Creatinine, Serum 3.62(H)Comment:The analysis was performed 0.51-1.17 mg/dL using an isotope dilution mass spectrometry (IDMS) traceable methodology. Calcium 8.9 8.5-10.1 mg/dL Total Protein 5.8(L) 6.4-8.2 g/dL Albumin 3.1(L) 3.4-5.0 g/dL Bilirubin Total 0.4 0.2-1.0 mg/dL Alkaline Phosphatase 78 45-117 U/L AST 21 7-40 U/L ALT 23 0-65 U/L Anion Gap 9 2-18 mmol/L BUN/Creatinine Ratio 19.9 10.0-24.0 Osmolality Calculated 303(H) 275-295 mosm/Kg Globulin 2.7 2.5-3.8 g/dL A/G Ratio 1.1 1.1-2.3 EGFR Non-/Australian 17(L)Comment: >60 GFR REFERENCE RANGE: >60 mL/min/1.73m2 -- Stage 4:GFR 15-29Severe decreased GFR. EGFR /Australian 20(L)Comment: >60 -- Stage 4:GFR 15-29Severe decreased GFR. Test Performed at [facility], [address], [place], [place]. CBC and differential (09/15/2016 9:32 PM) Component Value Range WBC 3.9(L) 4.5-11.0 th/mm3 RBC 2.91(L) 4.54-5.77 mill/mm3 Hemoglobin 8.6(L) 14.0-17.7 g/dL Hematocrit 26.1(L) 40.0-52.0 % MCV 89.7 82.0-99.0 fL MCH 29.6 27.0-32.0 pg MCHC 33.0 32.0-36.0 g/dL Platelets 74(L) 150-400 th/mm3 RDW 46.5 39.6-47.4 fL NRBC Absolute 0.00 0.00 th/mm3 Neutrophil % 73.5(H) 35.0-65.0 % Neutrophils Absolute Count 2.87 1.30-6.00 th/mm3 Lymphocytes % 6.4(L) 23.0-45.0 % Lymphocytes Absolute 0.25(L) 1.50-3.50 th/mm3 Monocyte % 14.9(H) 0.0-10.0 % Monos Absolute 0.58 <1.0 th/mm3 Eosinophils Relative % 4.4(H) 1.0-3.0 % Eosinophils Absolute Count 0.17 <0.7 th/mm3 Basophils % 0.5 0.0-1.0 % Basophils Absolute 0.02 <0.1 th/mm3 Immature Neutro % 0.3 0.0-1.0 % Immature Neutro 0.01Comment:Test Performed at [facility], [address], [place].
--- OUTSIDE RECORDS SUMMARY | 2016-09-17 11:50 | XMS REPORT | Continuity of Care Document ---
:1940 Author Organization [facility] ([facility]) Address [address] [place] [address] Phone [phone] Care Team Providers Name Role Phone Barron Francis Primary Care Provider [phone] Source Comments This disclosure is being made pursuant to the Care Everywhere program, applicable federal and state laws, and may not contain all informaitonavailable regarding this patient.[facility] ([facility]) Active Allergies and Adverse Reactions Allergen Noted Date Severity Reactions Comments Codeine Stomach Pain Current Medications Prescription Sig. Disp. Refills Start End Status Date Date multivitamin per Take 1 tablet by Active tablet mouth daily ciprofloxacin 750 Take 750 mg by Active mg tablet mouth every week On Tuesday morning. riFAXimin Take 1 Tab by 60 Tab 10/14/19 Active (XIFAXAN) 550 mg mouth 2 times 13 tablet daily. Indications: HEPATIC ENCEPHALOPATHY lactulose 10 g/15 Take 15 mL by 1000 mL 10/14/19 Active mL solution mouth 2 times 13 daily. Indications: HEPATIC ENCEPHALOPATHY cyanocobalamin Inject 1,000 mcg Active (VITAMIN B-12) intramuscularly 1000 mcg/mL every month. Last injection dose given 08/19 finasteride 5 mg Take 5 mg by mouth Active tablet every evening . levothyroxine Take 75 mcg by 03/20/20 Active (SYNTHROID) 75 mcg mouth every 13 tablet morning before breakfast . lovaSTATIN 40 mg take 2 tablet 04/20/20 Active tablet (80MG) by oral 11 route every day with the evening meal folic acid 1 mg Take 1 tablet (1 30 tablet 0 04/19/20 Active tablet mg total) by mouth 15 daily melatonin 3 mg Take 1 tablet (3 30 tablet 0 04/19/20 Active tablet mg total) by mouth 15 at bedtime midodrine 5 mg Take 1 tablet (5 90 tablet 11 05/01/20 Active tablet mg total) by mouth 15 2 times daily cholecalciferol Take 2,000 Units Active (VITAMIN D3) 2,000 by mouth daily. unit tablet traZODone 50 mg 50mg in the Active tablet morning and 100mg at bedtime SERTraline 100 mg Take 50 mg by Active tablet mouth daily. 1/2 tablet morning aspirin 81 mg EC Take 81 mg by Active tablet mouth daily. tamsulosin 0.4 mg Take 0.4 mg by Active capsule mouth daily. thiamine 100 mg Take 100 mg by Active tablet mouth daily. zinc sulfate 220 Take 440 mg by Active mg capsule mouth 3 times daily. sodium bicarbonate Take 650 mg by Active 650 mg tablet mouth 3 times daily. vitamin E 400 unit Take 800 Units by Active capsule mouth daily. bacitracin 500 Apply topically as Active unit/g ointment needed. miconazole 2 % Apply topically Active powder daily as needed. furosemide 40 mg Take 40 mg by Active tablet mouth daily. ondansetron 4 mg Take 1 tablet (4 10 tablet 0 09/06/19 Active tablet mg total) by mouth 17 every 6 hours as needed for Nausea/Vomiting. bisacodyl 10 mg Insert 1 5 Suppository 0 09/06/19 Active suppository Suppository (10 mg 17 total) rectally daily as needed for Constipation. mupirocin 2 % Apply 1 Discontinued ointment application 2016 topically 2 times daily as needed OLANZapine 2.5 mg Take 5 mg by mouth 08/25/ Discontinued tablet at bedtime. 2016 furosemide 40 mg Take 40 mg by 09/02/ Discontinued tablet mouth daily. 2016 OLANZapine 10 mg Take 5 mg by mouth 08/25/ Discontinued tablet at bedtime. 2016 gabapentin 300 mg Take 300 mg by 08/25/ Discontinued capsule mouth 3 times 2016 daily. OLANZapine 2.5 mg Take 2 tablets (5 10 tablet 0 08/26/1909/05/ Discontinued tablet mg total) by mouth 17 2016 at bedtime. 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 Intestinal obstruction 08/17/2015 Hyperkalemia 08/17/2015 Metabolic acidosis, [...] Resolved Problems Problem Noted Date Resolved Date Encephalopathy 09/05/2016 09/05/2016 Bizarre behavior 09/01/2016 09/05/2016 Altered mental status 03/29/2015 04/19/2015 Most Recent Encounters Date Type Specialty Providers Description 09/17/2016 Hospital Patient Services Jeff Osborne Encounter 09/16/2016 [facility] Emergency Medicine Casimiro Beach Dx: Other ascites Encounter MD Hunter (Primary Dx) 09/16/2016 Orders/Notes Psychiatry Nancie Rosado MD 09/16/2016 Telephone Med GI/Hepatology Awilda Bridges, Chief Comp: Review Richelle Galeano RN Of Concerns 09/15/2016 Office Visit Med GI/Hepatology Ruben Monae Subj: Upcoming Lorena Galeano MD Reminder Casimiro Whipple PA-C 09/08/2016 Office Visit Med GI/Hepatology Ruben Monae Subj: Upcoming Lorena Galeano MD Reminder Casimiro Whipple PA-C 09/07/2016 Telephone Med GI/Hepatology Emily Lowry RN Chief Comp: Patient Concern 09/06/2016 Telephone Med GI/Hepatology Mary Jo Goldstein Chief Comp: Medical Update 09/02/2016 Telephone Med GI/Hepatology Emily Lowry RN Chief Comp: Patient Concern 09/01/2016 - [facility] Behavioral Health Nancie Rosado Dx: Bizarre 09/07/2016 Encounter Inpatient - MD hector Interiano (Primary Jeff Osborne, Dx) 09/01/2016 Office Visit Psychiatry Oliver Garvin MD Dx: Other specified Doretha Clark, anxiety disorders (Primary Dx) 09/01/2016 Office Visit Med GI/Hepatology Ruben Monae Dx: Ascites J, MD (Primary Dx) Griffin Parada MD Richardson, Michael T, PA-C 09/01/2016 Telephone Med GI/Hepatology Radha Quintero, Chief Comp: Other RN 08/30/2016 Telephone Med GI/Hepatology Mary Jo Goldstein Chief Comp: Follow-up 08/26/2016 Telephone Med GI/Hepatology Talia Bonilla, Chief Comp: Patient RN Concern 08/26/2016 Orders/Notes Med GI/Hepatology Ruben Monae Dx: Ascites MD Waleska (Primary Dx) 08/26/2016 Telephone Med GI/Hepatology Cecy Mchugh Chief Comp: Lab Results 08/26/2016 Orders/Notes Med GI/Hepatology Casimiro Whipple, PA-C 08/25/2016 Office Visit Med GI/Hepatology Griffin Parada Dx: Gomez Harrison MD (Primary Dx) William Blackwell MD Brown, Kyle E, MD Richardson, Michael T, PA-C 08/25/2016 Pharmacy Visit 08/18/2016 Office Visit Med GI/Hepatology Griffin Parada Dx: Cirrhosis of MD Hunter liver with ascites, William Blackwell, unspecified hepatic MD cirrhosis type Jasiel Velasquez MD (Primary Dx) Casimiro Whipple, PA-C 08/18/2016 Office Visit Med GI/Hepatology Default, Other [...] of liver (Primary Casimiro Muse, Dx) Casimiro Villanueva PA-C 07/30/2016 [facility] Radiology [facility], Dx: Cirrhosis Encounter Adriana Camarena MD 07/30/2016 Office Visit Med GI/Hepatology Ruben Monae Dx: Cirrhosis MD Waleska (Primary Dx) 07/28/2016 Office Visit Med GI/Hepatology Griffin Parada Dx: Ascites MD Hunter (Primary Dx) Casimiro Whipple PA-C 07/23/2016 Telephone Med GI/Hepatology Ruben Monae Dx: Renal failure, MD Waleska chronic, stage 4 (severe) (Primary Dx) 07/21/2016 Office Visit Med GI/Hepatology Default, Other Dx: Ascites Billg - Defo (Primary Dx) Jasiel Velasquez MD Richardson, Michael T, PA-C 07/14/2016 Office Visit Med GI/Hepatology Default, Other Dx: Ascites Billg - Defo (Primary Dx) Derrell Aguilera MD Richardson, Michael T, PA-C 07/07/2016 Office Visit Med GI/Hepatology Derrell Aguilera Dx: ELVIN Cunningham MD (nonalcoholic Whipple, steatohepatitis) Casimiro Hoskins PA-C (Primary Dx) 06/30/2016 Office Visit Med GI/Hepatology Derrell Aguilera Dx: Gomez Cunningham MD (Primary Dx) Casimiro Whipple PA-C 06/23/2016 Office Visit Med GI/Hepatology Default, Other Dx: Ascites Billg - Defo (Primary Dx) Byron Patino MD Richardson, Michael T, PA-C 06/23/2016 Orders/Notes Med GI/Hepatology Ruben Monae Dx: Gomez Galeano MD (Primary Dx) Immunizations Name Dates Previously Given Next Due Influenza 03/05/2015 Influenza, PF 03/22/2014 Tdap 01/25/2016,11/13/2013 Social History Tobacco Use Types Packs/Day Years Used Date Never Smoker 0.05 0 Smokeless Tobacco: Former User Chew Tobacco Cessation:Counseling Given: Yes Comments: Alcohol Use Drinks/Week oz/Week Comments No Last Filed Vital Signs Vital Sign Reading Time Taken Blood Pressure 96/64 09/15/2016 11:55 PM CDT Pulse 97 09/15/2016 11:55 PM CDT Temperature 37.3 C (99.1 F) 09/15/2016 11:55 PM CDT Respiratory Rate 20 09/15/2016 11:55 PM CDT Height 1.702 m (5' 7") 09/01/2016 5:09 PM CDT Weight 77.6 kg (171 lb 1.2 oz) 09/04/2016 4:12 PM CDT Body Mass Index 26.79 09/04/2016 4:12 PM CDT Oxygen Saturation 96% 09/15/2016 11:55 PM CDT Plan of Care Date Type Specialty Providers Description 09/22/2016 Appointment Med GI/Hepatology Ruben Monae MD [address] [place] [phone] (Fax) Subj: Upcoming Appt Casimiro Whipple PA-C [address] [place] [address] [phone] (Fax) Reminder 01/28/2017 Appointment Radiology Subj: Appointment Scheduled 01/28/2017 Appointment Med GI/Hepatology Ruben Monae, Subj: Appointment Scheduled [address] [place] [address] [phone] (Fax) 01/28/2017 Appointment Renal and Hypertension Default, Other Billg - Defo [address] [place] [address] [phone] (Fax) Subj: Appointment Yolis Rolle MD [address] [place] [phone] (Fax) Scheduled Health Maintenance Due Date Last Done Comments Hepatitis B Vaccine (1 of 3 - Primary 1940 Series) Colonoscopy 1990 Prostate Cancer Screening 1990 Zoster Vaccine 2000 Pneumococcal Vaccine (1 of 2 - PCV13) 2005 Influenza Vaccine: Seasonal (Season Ended) 2016 03/05/2015, 03/22/2014 Lipid Disorder Screening 08/02/2018 08/02/2013 Td Vaccine 01/24/2026 01/25/2016, 11/13/2013 AAA Screening Completed 08/17/2015, 04/21/2015 Tdap Vaccine Completed 01/25/2016, 11/13/2013 Procedures from Last 3 Months Procedure Name Priority Date/Time Associated Diagnosis Comments ABSTRACTED BY Routine 09/01/2016 9:12 Ascites Results for this BILLING STAFF PM CDT Cirrhosis procedure are in the results section. ABSTRACTED BY Routine 08/25/2016 1:54 OCONNOR (nonalcoholic [...] of Results for this BILLING STAFF PM JUNIOR [employer] liver procedure are in OCONNOR (nonalcoholic the results steatohepatitis) section. Ascites ABSTRACTED BY Routine 07/28/2016 2:13 Ascites Results for this BILLING STAFF PM JUNIOR [employer]ALEGAL OCONNOR (nonalcoholic procedure are in steatohepatitis) the results section. ABSTRACTED BY Routine 07/21/2016 2:46 OCONNOR (nonalcoholic Results for this BILLING STAFF PM JUNIOR PARALEGAL steatohepatitis) procedure are in Ascites the results section. ABSTRACTED BY Routine 07/14/2016 2:04 OCONNOR (nonalcoholic Results for this BILLING STAFF PM JUNIOR [employer]ALEGAL steatohepatitis) procedure are in Ascites the results section. ABSTRACTED BY Routine 07/07/2016 1:20 OCONNOR (nonalcoholic Results for this BILLING STAFF PM JUNIOR [employer]ALEGAL steatohepatitis) procedure are in Ascites the results section. ABSTRACTED BY Routine 06/30/2016 2:49 OCONNOR (nonalcoholic Results for this BILLING STAFF PM JUNIOR [employer]ALE[employer] steatohepatitis) procedure are in Ascites the results Portal hypertension section. CKD (chronic kidney disease) stage 4, GFR 15-29 ml/min Other ascites ABSTRACTED BY Routine 06/23/2016 1:50 OCONNOR (nonalcoholic Results for this BILLING STAFF PM JUNIOR [employer]ALEGAL steatohepatitis) procedure are in Ascites the results Portal hypertension section. CKD (chronic kidney disease) stage 4, GFR 15-29 ml/min Other ascites Results from Last 3 Months ALBUMIN-OTHER (09/16/2016 2:01 AM)Only the most recent of12 resultswithin the time period is included. Component Value Range Albumin Fluid Type Peritoneal fluid Albumin, Other 0.8Comment: g/dL This test is not approved by the FDA for this sample type. Performance characteristics and reference range have not been verified. Results should be interpreted in conjunction with clinical findings. Specimen Other BODY FLUID CELL COUNT AND DIFF (09/16/2016 2:01 AM)Only the most recent of12 resultswithin the time period is included. Component Value Range Body Fluid Type Peritoneal fluid Clarity, Other Slightly Hazy(A) Clear Color, Other Yellow None, Yellow, Pale Yellow Total Nucleated Count, Other 91 /MM3 RBC Count, Other 2000 /MM3 Neutrophils, Other 2 /MM3 Lymphocytes, Other 31 /MM3 Mononucleated Cells, Other 57 /MM3 Eosinophils, Other 1 /MM3 % Neutrophils, Other 2.0 % % Lymphocytes, Other 34.0 % %BF Mononucleated Cells 63.0 % % Eosinophils, Other 1.0 % Specimen Other DIFFERENTIAL (09/16/2016 1:10 AM)Only the most recent of2 resultswithin the time period is included. Component Value Range % Neutrophils-Auto Diff 74.8 % Neutrophils-Auto Diff 3860 2920-6364 /MM3 % Lymphocytes-Auto Diff 5.6 % Lymphocytes-Auto Diff 290(L) 875-3300 /MM3 % Monocytes-Auto Diff 14.7 % Monocytes-Auto Diff 760 130-860 /MM3 % Eosinophils-Auto Diff 4.1 % Eosinophils-Auto Diff 210 40-390 /MM3 % Basophils 0.4 % Basophils-Auto Diff 20 10-136 /MM3 % Immature Granulocytes-Auto Diff 0.4 % Immature Granulocytes-Auto Diff 20 /MM3 Specimen Whole Blood CBC (COMPLETE BLOOD COUNT) (09/16/2016 1:10 AM)Only the most recent of2 resultswithin the time period is included. Component Value Range WBC Count 5.2 3.7-10.5 K/MM3 RBC Count 3.16(L) 4.50-6.20 M/MM3 Hemoglobin 9.2(L) 13.2-17.7 g/dL Hematocrit 29(L) 40-52 % MCV (Mean Corpuscular Volume) 90 82-99 FL MCH (Mean Corpuscular Hemoglobin) 29 25-35 PG MCHC (Mean Corpuscular Hemoglobin Concentration) 32 32-36 % Platelet Count 92(L) 150-400 K/MM3 MPV (Mean Platelet Volume) 11.6 9.4-12.3 FL RBC Dist Width-STD 47.3(H) 35.1-43.9 FL RBC Distrib Width 14.3 9.0-14.5 % Nucleated RBC 0 /100 WBC Specimen Whole Blood ETHANOL VOLATILE PANEL (09/16/2016 1:10 AM) Component Value Range Sodium 138 135-145 mEq/L Glucose 123(H)Comment:The Expert Committee on the 65-99 mg/dL Diagnosis and Classification of Diabetes has defined impaired fasting glucose as greater than or equal to 100 mg/dL but less than 126 mg/dL. (Diabetes Care 28 (Suppl 1) S41,2005) BUN 69(H) 10-20 mg/dL Calculated Osmolality 309(H) 50-300 mOsm/kg Osmolality Gap 3 <15 mOsm/kg Unexplained Osmolality Gap 3Comment: <15 mOsm/kg The osmol gap is the measured plasma osmolality minus the calculated osmolality estimated using sodium, BUN, and glucose. The 'unexplained gap' provides a further correction for the presence of ethano l (if present) in the patient?s plasma. An elevated unexplained osmol gap > 15 can occur due to the presence of ethylene glycol, methanol, isopropanol, propylene glycol (found in activated charcoal and some intravenous medications), acetone, or mannitol. All samples that have an unexplained gap >15 are additionally tested for ethylene glycol by immunoassay.Elevated unexplained gaps can al so be seen in patients withdrawing from heavy ethanol use who have ketoacidosis and/or significant amounts of ethanol metabolites in the plasma. Ethanol 0Comment: mg/dL Reference range: None detected. Ethanol intoxication typically begins in the 50-100 mg/dL range. Critical value: >300 mg/dL. Ethanol values less than 10 mg/dL cannot be distinguished from zero. Osmolality, Plasma 312(H) 280-300 mOsm/kg Specimen Blood VENOUS BLOOD GAS (CRITICAL CARE LABORATORY) (09/16/2016 1:10 AM) Component Value Range pH, Venous 7.46(H) 7.33-7.43 pCO2, Venous 43 37-50 torr pO2, Venous 44 37-47 torr Base Excess, Venous 7(H) -2-2 mEq/L Bicarbonate, Venous 30(H) 22-26 mEq/L Total CO2, Venous 32 24-32 mEq/L Temperature, Venous 37.0 Degrees C Specimen Whole Blood PT/INR (PROTHROMBIN TIME/INR) VENOUS (09/16/2016 1:10 AM)Only the most recent of10 resultswithin the time period is included. Component Value Range PT (Prothrombin Time) 12 9-12 secs INR 1.2 <4.0 Specimen Blood AMMONIA, PLASMA (09/16/2016 1:10 AM)Only the most recent of4 resultswithin the time period is included. Component Value Range Plasma Ammonia 50 11-51 mol/L Specimen Blood LACTIC ACID, WHOLE BLOOD (CRITICAL CARE LABORATORY) (09/16/2016 1:10 AM) Component Value Range Lactic Acid, Whole Blood 0.7Comment: 0.5-2.0 mEq/L Glycolate, the principle toxic metabolite of ethylene glycol, can cause artifactual elevation of measured lactate. Specimen Whole Blood COMPREHENSIVE METABOLIC PANEL (CMP) (09/16/2016 1:10 AM) Component Value Range Sodium 138 135-145 mEq/L Potassium 3.9 3.5-5.0 mEq/L Chloride 97 95-107 mEq/L CO2 28 22-29 mEq/L BUN 69(H) 10-20 mg/dL Creatinine 3.6(H)Comment: 0.6-1.2 mg/dL Creatinine switched to enzymatic method on 10/06/2010.GFR equation switched to IDMS-traceable MDRD equation on 10/06/2010. Calculated GFR values are not valid in clinical settings where serum creatinine is changing. Glucose 123(H)Comment: 65-99 mg/dL The Expert Committee on the Diagnosis and Classification of Diabetes has defined impaired fasting glucose as greater than or equal to 100 mg/dL but less than 126 mg/dL.(Diabetes Care 28 (Suppl 1)S41,2005) Calcium 9.1 8.5-10.5 mg/dL Total Protein 6.0 6.0-8.0 g/dL Albumin 3.4 3.4-4.8 g/dL AST 23Comment: 0-40 U/L Adult reference ranges updated on 04/24/13 at 830am ALP 74 40-129 U/L Bilirubin Total 0.2 <=1.2 mg/dL ALT 17Comment: 0-41 U/L The upper limit of normal [...] if applicable, data from other diagnostic tests. Anion Gap 13 mEq/L Calculated GFR 17(L) >60 mL/min/1.73 m2 Specimen Blood CBC WITH DIFFERENTIAL (09/16/2016 1:10 AM)Only the most recent of2 resultswithin the time period is included. Specimen Whole Blood Narrative The following orders were created for panel order CBC WITH DIFFERENTIAL. Procedure Abnormality Status --------- ------ CBC (COMPLETE BLOOD COUNT)[[id number]] AbnormalFinal result DIFFERENTIAL[[id number]] AbnormalFinal result Please view results for these tests on the individual orders. BASIC METABOLIC PANEL W/ CALCIUM (CHEM 8) (09/05/2016 11:22 AM)Only the most recent of12 resultswithin the time period is included. Component Value Range Sodium 138 135-145 mEq/L Potassium 4.2 3.5-5.0 mEq/L Chloride 98 95-107 mEq/L CO2 26 22-29 mEq/L BUN 76(H) 10-20 mg/dL Creatinine 2.8(H)Comment: 0.6-1.2 mg/dL Creatinine switched to enzymatic method on 10/06/2010.GFR equation switched to IDMS-traceable MDRD equation on 10/06/2010. Calculated GFR values are not valid in clinical settings where serum creatinine is changing. Glucose 211(H)Comment: 65-99 mg/dL The Expert Committee on the Diagnosis and Classification of Diabetes has defined impaired fasting glucose as greater than or equal to 100 mg/dL but less than 126 mg/dL.(Diabetes Care 28 (Suppl 1)S41,2005) Calcium 8.4(L) 8.5-10.5 mg/dL Anion Gap 14 mEq/L Calculated GFR 22(L) >60 mL/min/1.73 m2 Specimen Blood CBC (COMPLETE BLOOD COUNT) (09/04/2016 9:37 AM)Only the most recent of11 resultswithin the time period is included. Component Value Range WBC Count 3.5(L) 3.7-10.5 K/MM3 RBC Count 3.08(L) 4.50-6.20 M/MM3 Hemoglobin 8.8(L) 13.2-17.7 g/dL Hematocrit 27(L) 40-52 % MCV (Mean Corpuscular Volume) 88 82-99 FL MCH (Mean Corpuscular Hemoglobin) 29 25-35 PG MCHC (Mean Corpuscular Hemoglobin Concentration) 33 32-36 % Platelet Count 78(L) 150-400 K/MM3 MPV (Mean Platelet Volume) 10.5 9.4-12.3 FL RBC Dist Width-STD 45.9(H) 35.1-43.9 FL RBC Distrib Width 14.4 9.0-14.5 % Nucleated RBC 0 /100 WBC Specimen Whole Blood CHEST - AP/PA (09/02/2016 4:54 PM) Impressions Findings/Impression: The cardiomediastinal silhouette and pulmonary vasculature are normal. The lungs are clear. There are no pleural effusions. 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 The remainder of the study is normal. Narrative Procedure: CHEST - AP/PA Technique: Portable AP chest radiograph Comparison: Chest radiograph(s) dated: 04/07/2015 to 08/17/2015. Clinical Indication: Wheezing Procedure Note Spike, Incoming Imaging Results - Izabel Sep 02, 2016 5:01 PM CDT Procedure: CHEST - AP/PA Technique: Portable AP chest radiograph Comparison: Chest radiograph(s) dated: 04/07/2015 to 08/17/2015. Clinical Indication: Wheezing IMPRESSION Findings/Impression: The cardiomediastinal silhouette and pulmonary vasculature are normal. The lungs are clear. There are no pleural effusions. 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 The remainder of the study is normal. PARACENTESIS (09/01/2016 9:12 PM) Narrative Casimiro Whipple PA-C 09/01/20169:12 PM PARACENTESIS Supervision type: Indirect Paracentesis, Diagnostic or Therapeutic Procedure Note 09/01/2016 Indication for the Procedure: Ascites secondary to OCONNOR cirrhosis Consent: obtained from patient. Time Out: yes Ultrasound: was not used Description of Procedure: The patient was positioned supine, prepped with betadine and draped sterilely.After ensuring adequate anesthesia a Delarosa needle was inserted into the abdomen in in the left lower quadrant and straw/amadou fluid was obtained.Total fluid removed was 7.1 liters.The device was withdrawn and a sterile dressing applied. 75 grams of IV Albumin was given. Fluid samples were sent for analyses Procedural Medications:1% lidocaine, 3 cc Complications: None noted Casimiro Whipple MS, MPAS, PAColeC Physician Geophysical Operator, Division Gastroenterology & Hepatology [facility] Department of Internal Medicine Pager: [phone] ECG - EKG 12 LEAD (09/01/2016 6:36 PM) Component Value Range ECG SEVERITY - BORDERLINE ECG - VENT. RATE 95 bpm RR 632 ms P-R INTERVAL 148 ms QRSD INTERVAL 100 ms QT INTERVAL 330 ms QTC INTERVAL 415 ms P AXIS 61 degrees QRS AXIS -38 degrees T WAVE AXIS 58 degrees REPORT SINUS RHYTHM [Now Present] VENTRICULAR PREMATURE COMPLEX [Now Present] MULTIPLE ATRIAL PREMATURE COMPLEXES LEFT AXIS DEVIATION [Remains] LATE PRECORDIAL R/S TRANSITION SIGNIFICANT RHYTHM CHANGES [Now Absent] NONSPECIFIC T ABNORMALITIES, INFERIOR LEADS [Now Absent] ECTOPIC ATRIAL RHYTHM Interpreting Physician: KEENAN VELASQUEZ MD STERILE BODY FLUIDS CULTURE-AUTOMATED (09/01/2016 3:06 PM)Only the most recent of11 resultswithin the time period is included. Component Value Range Blood Culture No Growth Specimen Culture - Peritoneal Fluid THYROXINE - FREE (09/01/2016 1:27 PM) Component Value Range Free T4 (Thyroxine) 1.22 0.80-1.80 ng/dL Specimen Blood VITAMIN B12 (09/01/2016 1:27 PM) Component Value Range Vitamin B12 1704(H)Comment: 211-946 pg/mL New analytical immunoassay with different reference range instituted 04/24/2013 AT 830AM Normal 211 - 946 pg/mL [id number] - 210 pg/mL Deficient<150pg/mL Specimen Blood THYROID STIMULATING HORMONE (TSH), WITH REFLEX FREE T-4 (09/01/2016 1:27 PM) Component Value Range TSH, Reflex 5.02(H) 0.27-4.20 IU/mL Specimen Blood DRUGS OF ABUSE - URINE (08/25/2016 3:22 PM) Component Value Range Amphetamines, Urine NegativeComment: Negative Test cut-off: 1000 ng/mL for d-methamphetamine. Benzodiazepine, Urine NegativeComment: Negative Test cut-off:100 ng/mL Cocaine, Urine NegativeComment: Negative Test cut-off:300 ng/mL Opiate, Urine NegativeComment: Negative Test cut-off:300 ng/mL for morphine Oxycodone, Urine NegativeComment: Negative Test cut-off:300 ng/mL Amphetamines assay cross-reacts well with amphetamine and methamphetamine, as well as the "control systems designer" amphetamines MDMA ("Ecstasy"), MDA, MDEA ("Brooke"), [...] 75,000 ng/mL). Please see Laboratory Services Handbook ([email or web address]_ [email or web address].index.html) for more detailed information on assay cross-reactivity. Drug of abuse screening tests are to be used for medical purposes only and not for non-medical purposes (e.g., employee, information systems security manager, or forensic testing). Specimen Urine THC-URINE SCREEN (08/25/2016 3:22 PM) Component Value Range THC, Urine Presumptive Positive(A)Comment: Negative Test-cut off:50 ng/mL Drug of abuse screening tests are to be used for medical purposes only and not for non-medical purposes (e.g., employee or forensic testing). Specimen Urine TOTAL PROTEIN-OTHER (08/25/2016 2:00 PM)Only the most recent of10 resultswithin the time period is included. Component [...] interference (Clin Biochem 48:911-914, 2015). Specimen Other PARACENTESIS (08/25/2016 1:54 PM) Casimiro Elmore PA-C [...] noted Casimiro Whipple MS, MPAS, PA-C Physician Geophysical Operator, Division Gastroenterology & Hepatology [facility] Department of Internal Medicine Pager: [phone] PARACENTESIS (08/18/2016 6:08 PM) Casimiro Elmore PA-C [...] noted Casimiro Whipple MS, MPAS, PA-C Physician Geophysical Operator, Division Gastroenterology & Hepatology [facility] Department of Internal Medicine Pager: [phone] PARACENTESIS OF ABDOMEN (08/11/2016 1:28 PM) Casiimro Elmore PA-C 08/11/20161:28 PM Paracentesis of abdomen [...] cc Complications: None noted Casimiro Whipple MS, MPASBALDO Physician Geophysical Operator, Division Gastroenterology & Hepatology [facility] Department of Internal Medicine Pager: [phone] VITAMIN D, 25-HYDROXY (08/05/2016 1:34 PM) Component Value Range Vitamin D, 25-OH 8(L)Comment: 20-80 ng/mL This assay accurately quantifies the sum of 25-hydroxyvitamin D3 and 25- hydroxyvitamin D2. Endocrine Society, [place] [employer] (IOM), and World Health Organization [...] cc Complications: None noted Casimiro Whipple, MS, BALDO THAYER Physician Geophysical Operator, Division Gastroenterology & Hepatology [facility] Department of Internal Medicine Pager: [phone] US RIGHT UPPER QUADRANT (RUQ) (07/30/2016 3:13 PM) Impressions Impression: 1. Cirrhotic liver without suspicious focal liver lesions. 2. There are changes of portal hypertension including splenomegaly and ascites. 3. Incidental liver granulomas & a cyst. --- Final --- Narrative [facility] Department of Radiology Ultrasound Division [address] [place] [address] ULTRASOUND REPORT NAME:JR. ADINA HADDAD Date of Service: 07/30/2016 MRN NO.: [id number] Date: 2016 Patient's : 1940 Resident/Tech: KARRIE [...] Results - TueJul 30, 2016 3:[address] [facility] Department of Radiology Ultrasound Division [address] [place] [address] ULTRASOUND REPORT NAME: JR. ADINA HADDAD Date of Service: 07/30/2016 MRN NO.: [id number] Review Date: 07/30/2016 Patient's : 1940 Resident/Tech: SRK Patient's Age: 75 years Referring MD: RUBEN [...] None noted Casimiro Whipple, MS, MPASBALDO Physician Geophysical Operator, Division Gastroenterology & Hepatology [facility] Department of Internal Medicine Pager: [phone] GAMMA GLUTAMYLTRANSPEPTIDASE (07/28/2016 12:58 PM) Component Value Range GGT 44 8-61 U/L Specimen Blood LACTATE DEHYDROGENASE (LDH) (07/28/2016 12:58 PM) Component Value Range LDH 206 135-225 U/L Specimen Blood ALPHA-FETOPROTEIN (07/28/2016 12:58 PM) Component Value Range AFP 1.7 0.0-9.0 ng/mL Specimen Blood HEPATIC FUNCTION PANEL (07/28/2016 12:58 PM) Component Value Range Albumin 3.3(L) 3.4-4.8 g/dL [...] noted Casimiro Whipple MS, BALDO THAYER Physician Geophysical Operator, Division Gastroenterology & Hepatology [facility] Department of Internal Medicine Pager: [phone] PARACENTESIS (07/14/2016 2:04 PM) Casimiro Elmore PA-C 07/14/20162:04 PM PARACENTESIS Supervision type: Indirect [...] noted Casimiro Whipple MS, MPAS, PA-C Physician Geophysical Operator, Division Gastroenterology & Hepatology [facility] Department of Internal Medicine Pager: [phone] PARACENTESIS OF ABDOMEN (07/07/2016 1:20 PM) Casimiro [...] noted Casimiro Whipple MS, MPAS, PA-C Physician Geophysical Operator, Division Gastroenterology & Hepatology [facility] Department of Internal Medicine Pager: [phone] PARACENTESIS (06/30/2016 2:49 PM) Casimiro Elmore PA-C [...] noted Casimiro Whipple MS, MPAS, PA-C Physician Geophysical Operator, Division Gastroenterology & Hepatology [facility] Department of Internal Medicine Pager: [phone] PARACENTESIS (06/23/2016 1:50 PM) Casimiro Elmore PA-C [...] cc Complications: None noted Casimiro Whipple MS, MPASBALDO Physician Geophysical Operator, Division Gastroenterology & Hepatology [facility] Department of Internal Medicine Pager: [phone]
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
[2016-09-17 11:55] LABS: Hematocrit 30.5 % (42.0-52.0); Mean Cell Volume 90.2 fl (78-100); Mean Corpuscular Hemoglobin 29.6 pg (27-31); Mean Corpuscular Hgb Conc 32.8 g/dl (32-36); Mean Platelet Volume 10.9 fl (6.0-9.5); Neutrophil # 4.1 K/mm3 (1.3-6.0); Neutrophil % 83.1 % (42-75.0); Platelet Count 80 K/mm3 (150-450); Red Blood Count 3.38 M/mm3 (4.7-6.0); White Blood Count 4.9 K/mm3 (4.0-10.5)
[2016-09-17 12:17] LABS: Albumin * 3.4 gm/dl (3.4-5.0); Anion Gap 12.7 mmol/L (6.8-13.8); BUN/Creatinine Ratio 18.2 (9.0-21.6); Bilirubin, Total 0.6 mg/dL (0.0-1.1); Ca. Corrected For Albumin 9.6 mg/dL (8.4-10.2); Calcium * 9.4 mg/dL (7.9-10.9); Carbon Dioxide 30.4 mmol/L (24-32.6); Potassium 3.1 mmol/L (3.4-4.6); Total Protein 6.8 gm/dL (6.2-8.2)
[2016-09-17 12:21] LABS: Troponin I 0.029 ng/ml (0.00-0.10)
[2016-09-17 14:17] LABS: Urine Appearance Clear; Urine Bacteria TRACE; Urine Bilirubin Negative (NEGATIVE); Urine Blood Negative /ul (NEGATIVE); Urine Color Yellow; Urine Hyaline Cast 0-5 /LPF; Urine Ketone Negative (NEGATIVE); Urine Nitrite Negative (NEGATIVE); Urine Protein Negative (NEGATIVE); Urine RBC None Seen /hpf (0-5); Urine Urobilinogen Normal (NORMAL); Urine WBC 0-5 /hpf (0-5); Urine pH 5.5 pH (5.0-7.0)
[2016-09-17] MEDS ORDERED: POTASSIUM CHLORIDE 20 MEQ TABLET.SA PO ONE (14:21)
[2016-09-17] MEDS ORDERED: POTASSIUM CHLORIDE 20 MEQ TABLET.SA ONE (14:24)
[2016-09-17] MEDS ORDERED: LEVOFLOXACIN 500 MG TABLET PO ONE (14:38)
[2016-09-17] MEDS ORDERED: metroNIDAZOLE 250 MG TABLET PO ONE (14:38)
[2016-09-17] MEDS ORDERED: LEVOFLOXACIN 500 MG TABLET ONE (14:46)
[2016-09-17] MEDS ORDERED: metroNIDAZOLE 250 MG TABLET ONE (14:46)
[2016-09-17 15:42] VITALS: BP 112/68
== END 2016-09-17 15:05 | disposition home or self-care (01) ==
LOC: ER 11:14
DX: K52.9 Noninfective gastroenteritis and colitis, unspecified (principal); I49.3 Ventricular premature depolarization; D64.9 Anemia, unspecified; N18.9 Chronic kidney disease, unspecified; E86.0 Dehydration